=== PATIENT | male | born 2000 | race Caucasian/White ===

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

== ENCOUNTER → 2021-04-08 09:37 | Outpatient (CLI) | payer OTHER, SELFPAY ==
[2021-04-08 12:06] LABS: Erythrocyte Sedimentation Rate < 1 mm/hr (0-20)
[2021-04-08 13:06] LABS: CRP < 2.90 mg/L (0.0-3.0); Thyroid Stim Hormone (TSH) 1.22 uIU/mL (0.358-3.74)
[2021-04-11 16:08] LABS: Endomysial Antibody IgA Negative (Negative)
[2021-04-11 17:03] LABS: Immunoglobulin A 135 mg/dL (90-386); t-Transglutaminase IgA <2 U/mL (0-3)
== END ==
LOC: LAB 09:42
PROVIDERS: Referring Provider Internal Medicine Gastroenterology; Visit Provider Internal Medicine Gastroenterology
DX: R19.7 Diarrhea, unspecified (principal)
CPT/HCPCS: 36415; 82784; 83516; 84443; 85652; 86140; 86255

== ENCOUNTER 2021-04-28 15:42 | Emergency (ER) | payer OTHER, SELFPAY ==
[2021-04-28 15:43] VITALS: BP 123/99; PULSE 67; RESP 16; TEMP 36.6; O2SAT 97; BMI 25.1
--- NOTE | 2021-04-28 16:13 | CT_ITS ---
STUDY: CT ABDOMEN AND PELVIS WITH CONTRAST REASON FOR EXAM: Male, 20 years old. Abdominal pain. RADIATION DOSAGE (If Supplied By Facility): CTDIvol = ( 11.21 ) mGy, DLP = ( 605.16 ) mGycm TECHNIQUE: Transaxial images were obtained from the dome of the diaphragm to the symphysis pubis with oral contrast. 100 mL of ISOVUE-370 was administered. Sagittal and coronal images were reconstructed. Individualized dose optimization techniques were used for this CT. COMPARISON: Abdomen, 09/20/2019. FINDINGS: The visualized lung bases are unremarkable. The visualized portions of the heart are within normal limits. Normal liver. Normal gallbladder and extrahepatic biliary system. Normal spleen. Normal pancreas. Normal bilateral adrenal glands. Normal right kidney. Normal left kidney. Question small hiatal hernia. The stomach is otherwise unremarkable. Normal small intestine. Normal colon. The appendix is visualized and appears normal. Normal abdominal aorta. There is venous distention of the inferior vena cava (IVC). Normal retroperitoneum. Normal urinary bladder. Normal prostate. No pelvic lymphadenopathy. No free air or free fluid is seen within the peritoneal cavity. Normal abdominal wall. Normal osseous structures. CT/Abdomen/Pelvis WITH Contrast IMPRESSION: 1. Question small hiatal hernia. 2. No evidence of acute intra-abdominal or pelvic process. Electronically Signed: Roldan Hazel DO at 18:26 EDT Tel [phone], Service support ,
--- NOTE | 2021-04-28 16:15 | EDS_ITS ---
HPI HPI - GI History of Present Illness Chief Complaint: Abd Pain Abdominal Pain/Flank Pain Onset: Today Context: Gradual Onset Quality: Cramping and Sharp Location: RLQ and LLQ Worsened by: Nothing Relieved by: - (Zofran) Nausea/Vomiting/Emesis GI Symptom: Positive for Nausea and Vomiting Quality: Negative for Blood streaks, Coffee ground and Hematemesis Diarrhea/Melena/Hematochezia GI Symptom: Positive for Diarrhea; Negative for Melena and Hematochezia Stool Quality: Positive for Loose and Watery; Negative for Black, Maroon and BRB per rectum Associated Symptoms Associated Symptoms: Negative for Dysuria and Hematuria Narrative Narrative: Patient presents with lower abdominal pain that began today. Patient states it has been waxing and waning. Patient describes pain as sharp and cramping. Patient states Zofran has been helping with the nausea. Patient states he also takes Bentyl but this has not been helping. Patient admits to some nausea and vomiting. Patient denies any hematemesis or coffee-ground emesis. Patient admits to some diarrhea. Patient denies any melena or hematochezia. Patient describes his pain is loose and watery. Patient states that sometimes it is yellow-colored. Patient denies any dysuria or hematuria. Patient denies any fevers or chills. PFSH PFSH Medical History Alcohol use Anxiety Diarrhea Easy bruising Excessive bleeding Heartburn Marijuana use Redness of skin Smoker Home Medications acetaminophen 500 mg PO Q4H PRN PRN #0 tab 12/10/20 [Rx Last Taken Unknown] ibuprofen 400 mg PO Q6H PRN PRN #0 tab 12/10/20 [Rx Last Taken Unknown] dicyclomine [Bentyl] 10 mg PO BID PRN 04/11/21 [History Last Taken Unknown] ondansetron HCl [Zofran] 4 mg PO Q6H PRN 04/28/21 [History Last Taken Unknown] Allergy/AdvReac Type Severity Reaction Status Date / Time No Known Allergies Allergy Verified 04/11/21 09:54 Surgical History H/O excision of dermoid cyst History of surgery on right wrist Social History Smoking Status: Current every day smoker tobacco type: cigarettes and smokeless tobacco ROS ROS ED Constitutional Constitutional ED: Denies chills or fever(s) Eyes Eyes: Denies blurry vision or change in vision ENT ENT ED: Denies rhinorrhea or sore throat Cardiovascular Cardiovascular: Denies chest pain or palpitations Respiratory/Chest Respiratory/Chest: Denies cough or dyspnea Gastrointestinal Gastrointestinal: Reports abdominal pain, diarrhea, nausea and vomiting Genitourinary Genitourinary ED: Denies dysuria or hematuria Musculoskeletal Musculoskeletal: Denies back pain or neck pain Integumentary Denies abscess or rash Neurologic Neurologic: Denies headache(s) or weakness Allergic/Immunologic Allergic/Immunologic ED: Denies mouth swelling or urticaria EXAM Physical Exam Const Vital Signs: 04/28/21 15:43 Temperature 98 F Temperature Source Temporal Pulse Rate 67 Respiratory Rate 16 Blood Pressure 123/99 H Blood Pressure Mean 107 Pulse Ox 97 Oxygen Delivery Method Room Air Positive well nourished and well developed General Appearance ED: well developed HEENT Reports moist mucous membranes Neck supple and no JVD Resp normal respiratory effort and clear to auscultation bilaterally Cardio regular rate, regular rhythm and no murmurs GI normal to inspection, nondistended, normoactive bowel sounds and non-distended Auscultation: normoactive bowel sounds Palpation: soft and tender LLQ and suprapubic; Negative for guarding or rebound tenderness present Extremity normal to inspection General Extremety ED: Negative for edema or tenderness General Extremity: Negative for edema Neuro oriented x3, CN's II-XII intact bilaterally and no sensory deficits noted Sensorium / Orientation: alert Motor Exam: strength 5/5 throughout Psych mental status grossly normal Skin no rashes or lesions noted MDM MDM MDM Narrative Medical decision making narrative: Patient was given IV fluids and Zofran here. CBC and comprehensive metabolic profile were within normal limits. Lipase was normal. Urinalysis was normal. CT scan of the abdomen pelvis was obtained. There is no evidence of appendicitis. There is a questionable small hiatal hernia. There is no acute process noted. This was interpreted by the radiologist and reviewed by myself. Patient was advised of his findings. Patient was instructed to continue his Bentyl and Tylenol as needed for pain. Patient was instructed to follow-up with his primary care physician in 5 to 7 days for further evaluation. Patient understood and was agreeable with the plan. All questions were answered. Lab Data Attestation: I reviewed the patient's lab results. Labs: Laboratory Results - last 24 hr 04/28/21 04/28/21 04/28/21 16:50 16:50 17:15 WBC 8.8 RBC 5.15 Hgb 16.0 Hct 46.6 MCV 90.5 MCH 31.1 MCHC 34.3 RDW Std Deviation 42.5 RDW Coeff of Valerie 12.8 Plt Count 150 MPV 13.9 H Immature Gran % (Auto) 0.300 Neut % (Auto) 82.7 H Lymph % (Auto) 10.0 L [place] % (Auto) 6.2 Eos % (Auto) 0.2 Baso % (Auto) 0.6 Absolute Neuts (auto) 7.3 Absolute Lymphs (auto) 0.88 Nucleated RBC % 0 Sodium 139 Potassium 3.8 Chloride 105 Carbon Dioxide 27.0 Anion Gap 7 BUN 8 Creatinine 1.09 Estim Creat Clear Calc 109.00 Est GFR (MDRD) Af Amer 111 Est GFR (MDRD) Non-Af 92 BUN/Creatinine Ratio 7.3 L Glucose 95 Calcium 9.9 Total Bilirubin 0.80 AST 15 ALT 15 L Alkaline Phosphatase 70 Total Protein 7.8 Albumin 4.6 Globulin 3.2 Albumin/Globulin Ratio 1.4 Lipase 32 L Urine Color Straw Urine Clarity Clear Urine pH 7.0 Ur Specific [place] 1.005 Urine Protein Negative Urine Glucose (UA) Normal Urine Ketones 15 H Urine Occult Blood Negative Urine Nitrite Negative Urine Bilirubin Negative Urine Urobilinogen Normal Ur Leukocyte Esterase Negative Urine RBC 0 SEEN Urine WBC 0 SEEN Ur Squamous Epith Cells 0 SEEN Urine Bacteria 0 SEEN Urine Mucus 0 SEEN Radiography Diagnostic Testing: Clinical Impression(s) from Imaging Studies Abdomen/Pelvis CT 04/28/21 16:13 IMPRESSION: 1. Question small hiatal hernia. 2. No evidence of acute intra-abdominal or pelvic process. Electronically Signed: Roldan Hazel DO at 18:26 EDT Tel [phone], Service support , Discharge Plan Triage Chief Complaint: Abd Pain ED Provider: Braden Pond Dx/Rx/DC Orders Clinical Impression: Abdominal pain of unknown etiology Instructions: ED Abdominal Pain Unkn Cause Male... Prescriptions: No Action acetaminophen 500 mg Tablet 500 mg PO Q4H PRN PRN (Reason: Pain Score 1-5/10) Qty: 0 RF: 0 ibuprofen 200 mg Tablet 400 mg PO Q6H PRN PRN (Reason: Pain Score 4-10/10) Qty: 0 RF: 0 dicyclomine [Bentyl] 10 mg Capsule 10 mg PO BID PRN (Reason: CRAMPS) RF: 0 ondansetron HCl [Zofran] 4 mg Tablet 4 mg PO Q6H PRN (Reason: nausea) RF: 0 Primary Care Provider: Fauzia Nelson NP Referrals: Fauzia Nelson FOOD EQUIPMENT SERVICE TECHNICIAN, FOOD EQUIPMENT SERVICE TECHNICIAN-C [Primary Care Provider] - 5-7 Days Disposition Disposition: Home, Self Care
[2021-04-28] MEDS: 0.9% Normal Saline 1,000 ML 1000 ML IV (16:57)
[2021-04-28] MEDS: Ondansetron 4 MG/2 ML Vial IV (16:57)
[2021-04-28 17:08] LABS: Absolute Lymphocyte Count 0.88 X10^3/uL (0.83-4.51); Absolute Neutrophil Count 7.3 X10^3/uL (2.0-7.7); Basophil# 0.05 X10^3/uL; Basophil% 0.6 % (0-1); Eosinophil# 0.02 X10^3/uL; Eosinophils% 0.2 % (0-5); Hematocrit 46.6 % (40-54); Lymphocyte # 0.88 X10^3/ul (0.83-4.51); Mean Corp Hgb Conc 34.3 g/dL (32-36); Mean Corpuscular Hgb 31.1 pg (27.0-32.0); Mean Corpuscular Volume 90.5 fL (80-94); Mean Platelet Vol. 13.9 fl (6.2-12.0); Monocyte# 0.54 X10^3/uL; Monocyte% 6.2 % (0-10); NRBC Flagged by Analyzer 0 % (0-5); Neutrophil # 7.25 X10^3/uL (2.7-7.7); Neutrophil % 82.7 % (47-70); Platelet Count 150 K/mm3 (150-450); RBC Distribution Width CV 12.8 % (11.6-14.6); RBC Distribution Width SD 42.5 fl (35.1-43.9); Red Blood Count 5.15 M/mm3 (4.6-6.2); White Blood Count 8.8 K/mm3 (4.4-11.0)
[2021-04-28 17:18] LABS: Bacteria 0 SEEN /hpf (None Seen); Mucous, Urine 0 SEEN /hpf (<or=2+); Red Blood Cells-Urine 0 SEEN /hpf (0-5); Squamous Epithelial Cells - UA 0 SEEN /hpf (0-5); White Blood Cells 0 SEEN /hpf (0-5)
[2021-04-28 17:19] LABS: ALB/GLOB Ratio 1.4 RATIO (0.9-2.4); AST(SGOT) 15 U/L (15-37); Alanine Aminotransfer ALT/SGPT 15 U/L (16-61); Albumin, Serum 4.6 g/dL (3.2-5.0); Alkaline Phosphatase 70 U/L (45-117); Anion Gap 7 (5-15); BUN 8 mg/dL (7-18); BUN/Creat Ratio 7.3 RATIO (10-20); Calcium,Total 9.9 mg/dL (8.5-10.1); Chloride 105 mmol/L (98-107); Creatinine, Serum 1.09 mg/dL (0.70-1.30); EST Glomerular Filtration Rate 92 mL/min (>60); Est Glom Filt Rate - Afr Amer 111 mL/min (>60); Globulin 3.2 g/dL (2.2-4.2); Glucose 95 mg/dL (74-106); Lipase 32 U/L (73-393); Potassium 3.8 mmol/L (3.5-5.1); Protein, Total 7.8 g/dL (6.4-8.2); Sodium Level 139 mmol/L (136-145)
[2021-04-28 17:46] LABS: Color, Urine Straw (Yellow); Glucose, Dipstick Normal (Normal); Ketone-Dipstick 15 mg/dl (Negative); Leukocyte Esterase-Dipstick Negative /ul (Negative); Nitrite-Dipstick Negative (Negative); Occult Blood-Urine Negative /ul (Negative); Protein-Dipstick Negative (Negative); Specific Gravity, Urine 1.005 (1.002-1.030); Urine Bilirubin Dipstick Negative (Negative); Urine Clarity Clear (Clear); Urine Urobilinogen Normal (Normal)
== END 2021-04-28 19:05 | disposition home or self-care (01) ==
PROVIDERS: Emergency Provider Emergency Medicine; PCP Nurse Practitioner Family
DX: R10.30 Lower abdominal pain, unspecified (principal); R19.7 Diarrhea, unspecified; R11.2 Nausea with vomiting, unspecified; F17.210 Nicotine dependence, cigarettes, uncomplicated
CPT/HCPCS: 74177; 80053; 81001; 83690; 85025; 96361; 96374; 99283; J7030; Q9967; A4216; J2405

== ENCOUNTER 2021-05-12 08:08 | Day surgery (SDC) | payer OTHER, SELFPAY ==
--- NOTE | 2021-04-12 12:21 | SUR.PREOP ---
attempted to call pt b/c not here at arrival time of 1200. unable to get a hold of pt and voicemail full. endo aware
[2021-05-12] VITALS (7 sets, daily range): BP systolic 103–114; BP diastolic 61–88; PULSE 59–74; RESP 8–18; TEMP 36.2–36.6; O2SAT 100; BMI 23.6
[2021-05-12] MEDS: Lactated Ringers 1,000 ML 100 ML IV (08:43)
--- NOTE | 2021-05-12 09:30 | COLBX_PTH ---
PATIENT: DEDRICK LONGO LOC: EN U#:[id number] AGE/SX: 21/M ROOM: RE05/12/[address]: Dr. Chaz Hope DO : 2000 BED: DIS: 05/12/2021 SPEC #: [id number] RECD: 05/12/21 11:49 STATUS: MELE REAlma Delia #: [id number] JENNIFER: 05/12/21 09:[address]: Chaz Hope DEPT: SURGICAL PATHOLOGY RECD BY: Mary Harrell ENTERED: 05/12/21 12:50 SP TYPE: COLON BX OTHR DR: Fauzia Nelson, SARA Tissues: A - Duodenum, NOS B - Esophagus, NOS C - Ileum, NOS D - COLON BIOPSY Procedures: Special Stain Group II Surgery Specimen Level IV Alcian Blue/PAS (control) HEADER OPERATION: Colonoscopy, EGD ([facility] [place]) PRE-OP DIAGNOSIS: Diarrhea TISSUE SUBMITTED: A ? Duodenum, B ? Distal esophagus, C ? Terminal ileum biopsy, D ? Random colon biopsies MICROSCOPIC DIAGNOSIS A. Duodenum, biopsy: No pathologic change. B. Distal esophagus, biopsy: Gastroesophageal junctional mucosa with mild chronic inflammation. Focal changes of reflux. See comment. C. Terminal ileum, biopsy: No pathologic change. D. Colon, random biopsy: No pathologic change. AM:laureen 05/13/2021 COMMENT B. Alcian blue/PAS stain with matched control supports the above diagnosis. MICROSCOPIC DESCRIPTION Slides are reviewed. GROSS DESCRIPTION A - Received in fixative is one container labeled with the patient's name and designated duodenum. The specimen consists of multiple irregular fragments of [place] soft tissue that in aggregate measure 0.5 x 0.3 x 0.1 cm. The specimen is totally submitted in one cassette. B - Received in fixative is one container labeled with the patient's name and designated distal esophagus. The specimen consists of multiple irregular fragments of [place] soft tissue that in aggregate measure 0.5 x 0.4 x 0.1 cm. The specimen is totally submitted in one cassette. C - Received in fixative is one container labeled with the patient's name and designated terminal ileum biopsy. The specimen consists of one irregular fragment of [place] soft tissue that measures 0.3 x 0.3 x 0.1 cm. The specimen is totally submitted in one cassette. D - Received in fixative is one container labeled with the patient's name and designated random colon biopsy. The specimen consists of multiple irregular fragments of [place] soft tissue that in aggregate measure 2 x 0.5 x 0.1 cm. The specimen is totally submitted in one cassette. / NIHARIKA:laureen 05/12/21 TC:3 CPT: 78619 x4, 62283
--- NOTE | 2021-05-12 10:40 | PCM.HP.BLA ---
History and Physical Date of Admission: 05/12/21 Allergies No Known Allergies Allergy (Verified 04/08/21 08:46) Medications acetaminophen 500 mg PO Q4H PRN PRN #0 tab 12/10/20 [Rx Confirmed 04/08/21] amoxicillin-pot clavulanate [Augmentin] 1 tab PO Q12H #14 tab 12/10/20 [Rx] ibuprofen 400 mg PO Q6H PRN PRN #0 tab 12/10/20 [Rx Confirmed 04/08/21] bisacodyl 5 mg tablet 5 mg PO ONCE #4 tab MDD 4 04/08/21 [Rx Confirmed 04/08/21] ondansetron HCl 4 mg tablet 4 mg PO Q6H 04/08/21 [History Confirmed 04/08/21] peg 3350-electrolytes 236 gram-22.74 gram-6.74 gram-5.86 gram solution 240 ml PO Q10M #4000 ml 04/08/21 [Rx Confirmed 04/08/21] PFSH Medical History Alcohol use Diarrhea Easy bruising Excessive bleeding Heartburn Marijuana use Redness of skin Smoker Surgical History (Updated 12/06/20 @ 14:24 by Lawanda Hugo) History of surgery on right wrist Social History Smoking Status: Current every day smoker HPI HPI Details: DEDRICK LONGO, is a 20 M who presents to the office today for Symptoms started a while ago, as per the patient. Acute symptoms as listed in ROS started 2-3 weeks ago. Began with flu-like symptoms; COVID negative, CT reported as normal. Starts with mid abdomen cramp that indicated he has to have a BM of liquid stool immediately. Lying down starts nausea and heartburn causing a avoidance of food. Experiences dry heaves. Reports weight loss of 6lbs in a week and has remained stable since.PCP prescribed zofran, bentyl and pepcid. He had issues like this in the past. He does smoke marijuana and does calm him down because he does have issues with mild anxiety. He says that his grandmother had an issue with bile acid diarrhea and is not sure if this is an issue for him. However his diarrhea is progressing to the point where it is waking him up out of his sleep in the morning. Also the abdominal cramping is happening more frequently to the point where he is having nausea and vomiting. He does not ingest well water. He has not had any antibiotics. He did go to an outside institution and they performed a biochemical analysis and it did not show any abnormalities. He has not had any abdominal surgeries. ROS Const Constitutional: Positive for fatigue, headache(s) and weight change (Loss) Eyes Eyes: No change in vision ENT ENT: Positive for nasal congestion, headache(s), hoarseness and sore throat Resp Respiratory: No cough or shortness of breath Cardio Cardiology: Positive for chest pain at rest and dyspnea on exertion Gastro GI: Positive for abdominal pain, bloating, change in bowel habits, constipation, diarrhea, heartburn, vomiting and other (Nausea) Genitourinary Male: No difficulty urinating or burning urination Musc Musculoskeletal: Positive for muscle cramps, muscle weakness and restless legs Skin Skin: Positive for dry skin, itchy eyes and rash Neuro Neurology: Positive for headache(s) and restless legs Psych Psychiatric: Positive for anxiety and Positive for depression Endo Endocrine: Positive for fatigue Aller/Imm Allergy/Immunologic: Positive for itchy eyes Edgardo/Lymp Hematologic/Lymphatic: No easy bleeding, easy bruising or enlarged lymph nodes Exam Const General: cooperative and comfortable Nutritional Appearance: average body habitus and well nourished HENMT Head: normal to inspection Ears: hearing grossly normal bilaterally Nose: external nose normal Face and sinus: normal facial exam Mouth: oral mucosae normal Throat: posterior oropharynx normal Eyes General: appearance normal, both eyes and all related structures Neck Neck: normal visual inspection Chest Chest palpation & inspection: normal inspection of the chest and normal palpation of entire chest wall Resp Effort & Inspection: normal respiratory effort Auscultation: Bilateral: Clear to Auscultation Cardio Palpation: normal PMI Rate: regular rate Rhythm: regular rhythm GI Inspection: normal to inspection Auscultation: normal bowel sounds Percussion: normal to percussion Palpation: no hepatosplenomegaly Skin General: no rashes or lesions noted Neuro General: patient alert Extrem General: normal to inspection Psych Affect: normal affect Quality Reporting Tobacco Screening ([facility]) Smoking Status: Current every day smoker Assessment and Plan Assessment and Plan (1) Diarrhea: Status: Acute Orders: Orders: CDIFF (PCR) Today Medications: New: bisacodyl 5 mg PO ONCE 4 tabs 0RF MDD 4 Patient Instructions: The differential diagnosis for acute diarrhea and a 20-year-old would be infectious diarrhea, inflammatory bowel disease, IBS with diarrhea. He has lost 6 pounds in a week and his outpatient stool culture was negative. He should undergo upper and lower endoscopy for evaluation of his upper GI tract for celiac disease, gastritis or duodenitis. He should also undergo colonoscopy for evaluation of the terminal ileum and colon for Crohn's disease and/or microscopic colitis. We will also send stool for C. difficile. He was explained alternatives, risk, benefits including outstanding bleeding, infection, sepsis, perforation, need for emergent surgery and . He will have an ASA 1. Plan Details Other Medications: New: peg 3350-electrolytes 236-22.74-6.74 -5.86 gram (Golytely) until fecal effluent is clear 240 mL PO Q10M 4,000 mL 0RF
--- NOTE | 2021-05-12 11:40 | OP.EGD_ITS ---
Patient Name: Braden Washington Procedure Date: 05/12/2021 11:03 AM Date of : 2000 Age: 21 Procedure: Upper GI endoscopy Indications: Heartburn Providers: Chaz Hope DO Referring MD: Chaz Hope DO Medicines: Propofol per Anesthesia Patient Profile: This is a 21 year old male. Refer to note in patient chart for documentation of history and physical. Patient has symptoms of acute abdominal cramping and acute global abdominal pain. Complications: No immediate complications. Procedure: Pre-Anesthesia Assessment: - Prior to the procedure, a History and Physical was performed, and patient medications and allergies were reviewed. The patient is competent. The risks and benefits of the procedure and the sedation options and risks were discussed with the patient. All questions were answered and informed consent was obtained. Patient identification and proposed procedure were verified by the physician in the pre-procedure area. Mental Status Examination: alert and oriented. Airway Examination: normal oropharyngeal airway and neck mobility. Respiratory Examination: clear to auscultation. CV Examination: normal. Prophylactic Antibiotics: The patient does not require prophylactic antibiotics. Prior Anticoagulants: The patient has taken no previous anticoagulant or antiplatelet agents. ASA Grade Assessment: II - A patient with mild systemic disease. After reviewing the risks and benefits, the patient was deemed in satisfactory condition to undergo the procedure. The anesthesia plan was to use moderate sedation / analgesia (conscious sedation). Immediately prior to administration of medications, the patient was re-assessed for adequacy to receive sedatives. The heart rate, respiratory rate, oxygen saturations, blood pressure, adequacy of pulmonary ventilation, and response to care were monitored throughout the procedure. The physical status of the patient was re-assessed after the procedure. After obtaining informed consent, the endoscope was passed under direct vision. Throughout the procedure, the patient's blood pressure, pulse, and oxygen saturations were monitored continuously. The gastroscope was introduced through the mouth, and advanced to the second part of duodenum. The upper GI endoscopy was accomplished without difficulty. The patient tolerated the procedure well. Moderate Sedation: Moderate (conscious) sedation was personally administered by an anesthesia professional. The following parameters were monitored: oxygen saturation, heart rate, blood pressure, and response to care. Total physician intraservice time was 15 minutes. Scope In: 11:07:03 AM Scope Out: 11:12:26 AM Total Procedure Duration Time 0 hours 5 minutes 23 seconds Findings: LA Grade C (one or more mucosal breaks continuous between tops of 2 or more mucosal folds, less than 75% circumference) esophagitis with no bleeding was found 34 to 35 cm from the incisors. Biopsies were taken with a cold forceps for histology. Verification of patient identification for the specimen was done. Estimated blood loss was minimal. A small hiatal hernia was present. The cardia and gastric fundus were normal on retroflexion. Localized mild inflammation characterized by congestion (edema) was found in the first portion of the duodenum. Biopsies were taken with a cold forceps for histology. Verification of patient identification for the specimen was done. Estimated blood loss: none. Impression: - LA Grade C reflux esophagitis. Biopsied. - Small hiatal hernia. - Duodenitis. Biopsied. Recommendation: - Discharge patient to home. - Resume previous diet. - Continue present medications. - Await pathology results. - Return to my office in 2 weeks. Procedure Code(s): --- Professional --- 75365, Esophagogastroduodenoscopy, flexible, transoral; with biopsy, single or multiple CPT copyright 2017 [employer]. All rights reserved. The codes documented in this report are preliminary and upon roving department end finder review may be revised to meet current compliance requirements. Chaz Hope DO 05/12/2021 11:37:38 AM This report has been signed electronically. Number of Addenda: 1 Note Initiated On: 05/12/2021 11:03 AM Addendum Number: 1 Addendum Date: 03/23/2022 4:41:01 PM MAC was used instead of moderate sedation for this patient. Chaz Hope DO 03/23/2022 4:41:06 PM This report has been signed electronically.
--- NOTE | 2021-05-12 11:40 | OP.CCLET_ITS ---
03/23/2022 Fauzia Nelson Np-cinthia Re : Upper GI endoscopy procedure for Braden Washington Dear Omar This procedure was performed on April. My impressions and recommendations are as follows: Impressions : - LA Grade C reflux esophagitis. Biopsied. - Small hiatal hernia. - Duodenitis. Biopsied. Recommendations : - Discharge patient to home. - Resume previous diet. - Continue present medications. - Await pathology results. - Return to my office in 2 weeks. My findings are described in the full procedure note, which is enclosed. If I can be of further assistance, please feel free to contact me at . Sincerely, Chaz Hope, 05/12/2021 11:37:38 AM This report has been signed electronically.
--- NOTE | 2021-05-12 11:44 | OP.COLON_ITS ---
Patient Name: Braden Washington Procedure Date: 05/12/2021 11:15 AM Date of : 2000 Age: 21 Procedure: Colonoscopy Indications: Chronic diarrhea Providers: Chaz Hope DO Referring MD: Chaz Hope DO Medicines: Propofol per Anesthesia Patient Profile: This is a 21 year old male. Refer to note in patient chart for documentation of history and physical. Patient has symptoms of acute abdominal cramping and acute global abdominal pain. Last Colonoscopy: none. The patient's first colonoscopy is today. Complications: No immediate complications. Procedure: Pre-Anesthesia Assessment: - Prior to the procedure, a History and Physical was performed, and patient medications and allergies were reviewed. The patient is competent. The risks and benefits of the procedure and the sedation options and risks were discussed with the patient. All questions were answered and informed consent was obtained. Patient identification and proposed procedure were verified by the physician in the pre-procedure area. Mental Status Examination: alert and oriented. Airway Examination: normal oropharyngeal airway and neck mobility. Respiratory Examination: clear to auscultation. CV Examination: normal. Prophylactic Antibiotics: The patient does not require prophylactic antibiotics. Prior Anticoagulants: The patient has taken no previous anticoagulant or antiplatelet agents. ASA Grade Assessment: II - A patient with mild systemic disease. After reviewing the risks and benefits, the patient was deemed in satisfactory condition to undergo the procedure. The anesthesia plan was to use moderate sedation / analgesia (conscious sedation). Immediately prior to administration of medications, the patient was re-assessed for adequacy to receive sedatives. The heart rate, respiratory rate, oxygen saturations, blood pressure, adequacy of pulmonary ventilation, and response to care were monitored throughout the procedure. The physical status of the patient was re-assessed after the procedure. After I obtained informed consent, the scope was passed under direct vision. Throughout the procedure, the patient's blood pressure, pulse, and oxygen saturations were monitored continuously. The adult colonoscope was introduced through the anus and advanced to the terminal ileum. The colonoscopy was performed without difficulty. The patient tolerated the procedure well. The quality of the bowel preparation was good. Moderate Sedation: Moderate (conscious) sedation was administered by the endoscopy nurse and supervised by the endoscopist. The patient's oxygen saturation, heart rate, blood pressure and response to care were monitored. Total physician intraservice time was 15 minutes. Scope In: 11:17:25 AM Scope Withdrawal Time 0 hours 9 minutes 34 seconds Scope Out: 11:28:34 AM Total Procedure Duration Time 0 hours 11 minutes 9 seconds Findings: The perianal and digital rectal examinations were normal. An area of mildly congested mucosa was found in the descending colon. Biopsies were taken with a cold forceps for histology. Verification of patient identification for the specimen was done. Estimated blood loss was minimal. A localized area of the terminal ileum was congested. Biopsies were taken with a cold forceps for histology. The exam was otherwise without abnormality on direct and retroflexion views. Impression: - Congested mucosa in the descending colon. Biopsied. - Congested mucosa in the terminal ileum. Biopsied. - The examination was otherwise normal on direct and retroflexion views. Recommendation: - Discharge patient to home. - Resume previous diet. - Continue present medications. - Await pathology results. - Return to my office in 2 weeks. - Repeat colonoscopy is recommended per protocol. The colonoscopy date will be determined after pathology results from today's exam become available for review. Procedure Code(s): --- Professional --- 25612, Colonoscopy, flexible; with biopsy, single or multiple G0500, Moderate sedation services provided by the same physician or other qualified health resident care coordinator performing a gastrointestinal endoscopic service that sedation supports, requiring the presence of an independent trained observer to assist in the monitoring of the patient's level of consciousness and physiological status; initial 15 minutes of intra-service time; patient age 5 years or older (additional time may be reported with 19691, as appropriate) CPT copyright 2017 [employer]. All rights reserved. The codes documented in this report are preliminary and upon manager customer review may be revised to meet current compliance requirements. Chaz Hope DO 05/12/2021 11:43:36 AM This report has been signed electronically. Number of Addenda: 1 Note Initiated On: 05/12/2021 11:15 AM Addendum Number: 1 Addendum Date: 03/23/2022 4:41:14 PM MAC was used instead of moderate sedation for this patient. Chaz Hope DO 03/23/2022 4:41:18 PM This report has been signed electronically.
--- NOTE | 2021-05-12 11:44 | OP.CCLET_ITS ---
03/23/2022 Jono Camacho Re : Colonoscopy procedure for Braden Readr Omar This procedure was performed on April. My impressions and recommendations are as follows: Impressions : - Congested mucosa in the descending colon. Biopsied. - Congested mucosa in the terminal ileum. Biopsied. - The examination was otherwise normal on direct and retroflexion views. Recommendations : - Discharge patient to home. - Resume previous diet. - Continue present medications. - Await pathology results. - Return to my office in 2 weeks. - Repeat colonoscopy is recommended per protocol. The colonoscopy date will be determined after pathology results from today's exam become available for review. My findings are described in the full procedure note, which is enclosed. If I can be of further assistance, please feel free to contact me at . Sincerely, Chaz Hope, 05/12/2021 11:43:36 AM This report has been signed electronically.
== END 2021-05-12 12:10 | disposition home or self-care (01) ==
LOC: EN 08:10 → AC 08:10
PROVIDERS: PCP Nurse Practitioner Family; Referring Provider Nurse Practitioner Family; Visit Provider Internal Medicine Gastroenterology
PROC: 0DJD8ZZ Inspection of Lower Intestinal Tract, Via Natural or Artificial Opening Endoscopic (ICD-10-PCS; CPT 45378; principal; 2021-05-12 09:25)
DX: K29.80 Duodenitis without bleeding (principal); K63.89 Other specified diseases of intestine; K21.00 Gastro-esophageal reflux disease with esophagitis, without bleeding; K44.9 Diaphragmatic hernia without obstruction or gangrene; Z79.899 Other long term (current) drug therapy; F17.200 Nicotine dependence, unspecified, uncomplicated
CPT/HCPCS: 43239; 45380; 87426; 88305; 88313; C9803; J7120; J2405

== ENCOUNTER 2024-04-07 14:08 | Emergency (ER) | payer SELFPAY ==
[2024-04-07 14:09] VITALS: BP 125/69; PULSE 117; RESP 18; TEMP 36.4; O2SAT 98; BMI 23.3
--- NOTE | 2024-04-07 15:31 | RAD_ITS ---
STUDY: X-RAY CHEST REASON FOR EXAM: Male, 23 years old. sob, chest pain TECHNIQUE: Single frontal view of the chest. COMPARISON: None. FINDINGS: The lungs are clear and expanded. There is no demonstrated pleural abnormality. Normal size heart. Normal mediastinum and brielle. Normal visualized pulmonary arteries. Normal visualized aortic arch and descending thoracic aorta. Normal visualized thoracic spine. Normal visualized ribs, clavicles, and shoulders. There is no demonstrated abnormality of the visualized soft tissue structures of the upper abdomen. RAD/Chest PA and Lateral IMPRESSION: Normal x-ray examination of the chest. Electronically Signed: Cosmo Owens MD at 16:59 EDT ,
--- NOTE | 2024-04-07 15:36 | ED.VIS.CHEST ---
HPI History of Present Illness Chief Complaint: Chest Pain Informant: patient Narrative Narrative: Patient is a 23-year-old male who denies any significant past medical history presenting with chest discomfort and shortness of breath. Patient states for the past 24 hours he has had pain in the upper center of his chest. He states he feels that his chest is cramped up and tight. He does not feel that he can take a full breath because of the pain. He states the pain the starting to radiate to his left arm a little bit. It is worse with movement and coughing. He does not feel short of breath at rest but does not feel like he can take a full breath. Denies any wheezing. Denies any history of asthma or reactive airway. Denies any recent fever or URI symptoms. Denies any headache. Took some [id number]-[id number] medication last night but states he still woke up a couple times throughout the night because of his discomfort. Does not take any medication on a daily basis, denies any swelling of his legs or history of DVT or PE. States his grandfather had open heart surgery in his 30s or 40s but does not know of any other family history of heart disease at a young age. Denies any new physical activity where he thinks he could have pulled something or injured a muscle. No other complaints or concerns reported at this time. [facility] Medical History Anxiety Diarrhea Marijuana use Alcohol use Redness of skin Excessive bleeding Easy bruising Heartburn Smoker Home Medications ?Medication ?Instructions ?Recorded ?Last Taken ?Type acetaminophen 500 mg tablet 500 mg PO Q4H PRN PRN Pain Score 12/10/20 Unknown Rx 1-11/29 #0 tabs ibuprofen 200 mg tablet 400 mg (2 x 200 mg) PO Q6H PRN PRN 12/10/20 Unknown Rx Pain Score 4-1010 #0 tabs dicyclomine 10 mg capsule 10 mg PO BID #14 caps 05/17/21 Unknown Rx duloxetine 30 mg capsule,delayed 30 mg PO DAILY #30 caps 05/17/21 Unknown Rx release (Cymbalta) omeprazole 40 mg capsule,delayed 40 mg PO BID #60 caps 05/17/21 Unknown Rx release Allergy/AdvReac Type Severity Reaction Status Date / Time No Known Allergies Allergy Verified 04/07/24 14:11 Surgical History H/O excision of dermoid cyst History of surgery on right wrist Social History Smoking Status: Current every day smoker tobacco type: cigarettes and smokeless tobacco ROS ROS ED Constitutional Constitutional ED: Denies chills or fever(s) ENT ENT ED: Denies rhinorrhea Cardiovascular Cardiovascular: Reports as per HPI and chest pain; Denies palpitations or racing heartbeat Respiratory/Chest Respiratory/Chest: Reports dyspnea; Denies cough or sputum Gastrointestinal Gastrointestinal: Denies abdominal pain, nausea or vomiting Musculoskeletal Musculoskeletal: Denies arthralgias, back pain or myalgias Integumentary Denies rash Neurologic Neurologic: Denies headache(s) EXAM Physical Exam Const Vital Signs: 04/07/24 14:09 04/07/24 15:08 04/07/24 16:39 Temperature 97.5 F L Temperature Source Temporal Pulse Rate 117 H Respiratory Rate 18 Respiratory Effort Normal Blood Pressure 125/69 H Blood Pressure Mean 87 Pulse Ox 98 Oxygen Delivery Method Room Air Room Air 04/07/24 16:39 04/07/24 16:48 Temperature 98.9 F Temperature Source Pulse Rate 80 94 Respiratory Rate 22 H 16 Respiratory Effort Blood Pressure 111/67 106/62 Blood Pressure Mean 81 76 Pulse Ox 100 Oxygen Delivery Method Positive well nourished and well developed General Appearance ED: well developed and NAD HEENT Reports moist mucous membranes Eyes PERRL Neck supple and no JVD Chest Wall inspection of chest normal and palpation of chest normal Chest Narrative: Patient reclined in the bed comfortable appearing Resp normal respiratory effort and clear to auscultation bilaterally Cardio regular rate, regular rhythm and no murmurs Peripheral Pulses: pulses 2+ throughout GI normal to inspection, nondistended, normoactive bowel sounds and soft to palpation Extremity normal to inspection Neuro oriented x3 Sensorium / Orientation: awake and alert Motor Exam: Negative for general weakness Psych mental status grossly normal Skin no rashes or lesions noted and no wounds Heart Score History: Slightly/Non-Suspicious ECG: Normal Age: </= 45 years Risk Factors: No Risk Factors Score: 0 MDM MDM MDM Narrative Medical decision making narrative: Patient is evaluated for what sounds like pleuritic chest pain. Physical exam relatively benign. Patient overall is well-appearing. Patient is tachycardic upon arrival. Differential includes pleurisy, pneumothorax, pulmonary emboli, pneumonia, pericarditis and endocarditis. Lower sufficient for ACS based on story. Due to his tachycardia will check D-dimer (no other risk factors) and single troponin. He said some constant symptoms for the past 24 hours. Will also check a CBC and a BMP. EKG does not show any ischemic process. Will obtain a two-view chest x-ray. She is given IV Toradol in the meantime. 2 view chest x-ray viewed by myself as well as radiology does not show any acute process. Lab work largely normal. Troponin less than 3 and D-dimer is normal. Low suspicion for more serious cause of pain and feel the patient can capably be discharged home. Tachycardia resolved quickly in the ER at rest. Given return precautions. Encouraged follow-up with primary care doctor. Discharged home in stable condition. Patient reevaluated just prior to discharge. Does have improvement of pain with Toradol in the ER. Lab Data Attestation: I reviewed the patient's lab results. Labs: Laboratory Results - last 24 hr 04/07/24 15:40 WBC 8.7 RBC 4.89 Hgb 15.4 Hct 44.9 MCV 91.8 MCH 31.5 MCHC 34.3 RDW Std Deviation 45.8 H RDW Coeff of Valerie 13.6 Plt Count 147 L MPV 12.1 H Immature Gran % (Auto) 0.500 Neut % (Auto) 80.1 H Lymph % (Auto) 10.0 L Charlotte % (Auto) 8.5 Eos % (Auto) 0.3 Baso % (Auto) 0.6 Absolute Neuts (auto) 6.9 Absolute Lymphs (auto) 0.87 Nucleated RBC % 0 D-Dimer Quant (PE/DVT) 0.32 Sodium 138 Potassium 3.7 Chloride 102 Carbon Dioxide 27.0 Anion Gap 9 BUN 9 Creatinine 0.90 Estim Creat Clear Calc 132.93 Est GFR (MDRD) Af Amer 134 Est GFR (MDRD) Non-Af 111 BUN/Creatinine Ratio 10.0 Glucose 94 Calcium 9.4 Troponin I High Sens < 3 L Radiography Diagnostic Testing: Clinical Impression(s) from Imaging Studies Chest X-Ray 04/07/24 15:31 IMPRESSION: Normal x-ray examination of the chest. Electronically Signed: Cosmo Owens MD at 16:59 EDT , Rhythm Strip Rhythm Strip: Sinus Rhythm Rate: 93 Ectopy: None EKG Initial EKG: Attestation: I personally reviewed and interpreted this EKG as follows: Interpretation: Sinus Rhythm Comments: Normal sinus rhythm at a rate of 93 bpm Normal axis Normal intervals Normal ST segments Discharge Plan Triage Chief Complaint: Chest Pain ED Provider: Pati Camarena Dx/Rx/DC Orders Clinical Impression: Chest pain on breathing Instructions: ED Chest Pain, Uncertain Cause, ED Pleurisy Prescriptions: No Action acetaminophen 500 mg Tablet 500 mg PO Q4H PRN PRN (Reason: Pain Score 1-5/10) Qty: 0 0RF ibuprofen 200 mg Tablet 400 mg PO Q6H PRN PRN (Reason: Pain Score 4-10/10) Qty: 0 0RF duloxetine [Cymbalta] 30 mg capsule,delayed release(DR/EC) 30 mg PO DAILY Qty: 30 0RF omeprazole 40 mg capsule,delayed release(DR/EC) 40 mg PO BID Qty: 60 1RF Rx Instructions: Take two times a day for eight weeks then once a day until reevaluated. dicyclomine 10 mg capsule 10 mg PO BID Qty: 14 0RF Primary Care Provider: Care Physician,No Primary Referrals: Fauzia Nelson [employer]ER [employer]ICE REPRESENTATIVE, [employer] SERVICE REPRESENTATIVE-[facility] [Non-Staff] - Activity Restrictions/Additional Instructions: Your workup was normal today with no acute abnormalities. At this time I feel that it is safe for you to be discharged home. Please alternate ibuprofen and Tylenol for the discomfort. Exact cause is not clear but there does not appear to be pneumonia, collapsed lung, an acute heart abnormality or blood clot in the lungs to be causing the symptoms. Print Language: Setswana Disposition Disposition: Home, Self Care Discharge Date/Time: 04/07/24 16:49
[2024-04-07] MEDS: Ketorolac 15 MG/ML Vial IV (15:44)
[2024-04-07 16:01] LABS: Absolute Lymphocyte Count 0.87 X10^3/uL (0.83-4.51); Absolute Neutrophil Count 6.9 X10^3/uL (2.0-7.7); Basophil# 0.05 X10^3/uL; Basophil% 0.6 % (0-1); Eosinophil# 0.03 X10^3/uL; Eosinophils% 0.3 % (0-5); Hematocrit 44.9 % (40-54); Hemoglobin 15.4 g/dL (13.0-16.5); Lymphocyte # 0.87 X10^3/ul (0.83-4.51); Mean Corp Hgb Conc 34.3 g/dL (32-36); Mean Corpuscular Hgb 31.5 pg (27.0-32.0); Mean Corpuscular Volume 91.8 fL (80-94); Mean Platelet Vol. 12.1 fl (6.2-12.0); Monocyte# 0.74 X10^3/uL; Monocyte% 8.5 % (0-10); NRBC Flagged by Analyzer 0 % (0-5); Neutrophil # 6.94 X10^3/uL (2.7-7.7); Neutrophil % 80.1 % (47-70); Platelet Count 147 K/mm3 (150-450); RBC Distribution Width CV 13.6 % (11.6-14.6); RBC Distribution Width SD 45.8 fl (35.1-43.9); Red Blood Count 4.89 M/mm3 (4.6-6.2); White Blood Count 8.7 K/mm3 (4.4-11.0)
[2024-04-07 16:13] LABS: Anion Gap 9 (5-15); BUN 9 mg/dL (7-18); Calcium,Total 9.4 mg/dL (8.5-10.1); Chloride 102 mmol/L (98-107); EST Glomerular Filtration Rate 111 mL/min (>60); Est Glom Filt Rate - Afr Amer 134 mL/min (>60); Estimated Creatinine Clearance 132.93 ml/min; Glucose 94 mg/dL (74-106); Potassium 3.7 mmol/L (3.5-5.1); Sodium Level 138 mmol/L (136-145); Troponin-I HS < 3 pg/mL (3.0-78.0)
[2024-04-07 16:23] LABS: D-Dimer Quantitative (DVT/PE) 0.32 FEU/ug/m (0.27-0.49)
[2024-04-07 16:39] VITALS: BP 111/67; PULSE 80; RESP 22
[2024-04-07 16:48] VITALS: BP 106/62; PULSE 94; RESP 16; TEMP 37.2; O2SAT 100
== END 2024-04-07 16:49 | disposition home or self-care (01) ==
PROVIDERS: Emergency Provider Emergency Medicine; Visit Provider Emergency Medicine
DX: R07.1 Chest pain on breathing (principal); R06.02 Shortness of breath; F17.210 Nicotine dependence, cigarettes, uncomplicated; F17.220 Nicotine dependence, chewing tobacco, uncomplicated
CPT/HCPCS: 71046; 80048; 84484; 85025; 85379; 93005; 96374; 99283; A4216